=== PATIENT | female | born 1995 | race Caucasian/White ===

== ENCOUNTER 2017-10-18 05:59 | Day surgery (SDC) | payer BC ==
[2017-10-16 11:14] LABS: Urine Appearance CLOUDY; Urine Bilirubin NEGATIVE (NEG); Urine Blood 3+ (NEG); Urine Color YELLOW; Urine Glucose NEGATIVE (NEG); Urine Protein TRACE (NEG); Urine Urobilinogen 0.2 mg/dL (0.2-1.0); Urine pH 6.5 (5.0-7.0)
[2017-10-16 11:27] LABS: Urine Microscopic Reflex ORDER UMIC
[2017-10-16 11:31] LABS: Absolute Monocytes 0.4 K/uL (0.1-1.3); Absolute Neutrophil 2.6 K/uL (1.8-8.0); Basophils % 0.9 % (0-1.3); Eosinophils % 0.8 % (0-4.4); Lymphocytes % 38.8 % (15.3-44.8); MCH 30.1 pg (27.0-35.0); MCV 88.1 fL (80-100); MPV 8.7 fL (7.6-11.3); Monocytes % 8.6 % (3.3-12.3); RBC Red Blood Cell Count 4.54 M/uL (3.86-4.86)
[2017-10-16 11:38] LABS: Urine Bacteria <20 /HPF (<20); Urine RBC 20-50 /HPF (NONE SEEN)
[2017-10-16 11:39] LABS: Urine Culture Reflex Order REFLEXED
[2017-10-18] MEDS ORDERED: SCOPOLAMINE HYDROBROMIDE PATCH TD ONE (06:27)
[2017-10-18] MEDS ORDERED: Ringers Lactate 1,000 ML IV ONE ×2 (06:27→10:00)
[2017-10-18] MEDS ORDERED: PROPOFOL 200 MG/20 ML VIAL IV ONE (06:54)
[2017-10-18] MEDS ORDERED: ROCURONIUM 50 MG/5 ML VIAL IV ONE (06:54)
[2017-10-18] MEDS ORDERED: FENTANYL CITR 250 MCG/5 ML ONE ×2 (06:54→09:12)
[2017-10-18] MEDS ORDERED: MIDAZOLAM HCL 2 MG/2 ML INJ ONE (06:54)
[2017-10-18] MEDS ORDERED: LIDOCAINE 1% MPF 2 ML AMPULE ONE (06:55)
[2017-10-18] MEDS ORDERED: ONDANSETRON HCL 40 MG/20 ML VIAL ONE (06:55)
[2017-10-18] MEDS ORDERED: DEXAMETHASONE 10 MG/ML VIAL ONE (07:00)
[2017-10-18] MEDS: CEFAZOLIN/SWI 1gm 1 GM/10 ML SYR ONE ×2 (07:08→07:45)
[2017-10-18] MEDS: NA CHLORIDE 0.9% 1,000 ML ONE ×2 (07:09→07:45)
[2017-10-18] MEDS ORDERED: KETOROLAC 30 MG/ML INJ ONE (09:50)
[2017-10-18] MEDS: MEPERIDINE HCL 50 MG/ML AMP ONE ×4 (10:35→10:55)
[2017-10-18] MEDS: MORPHINE 4 MG/ML SYR ONE ×2 (11:00→11:08)
[2017-10-18] MEDS ORDERED: ONDANSETRON 4 MG/2 ML VIAL ONE (11:54)
[2017-10-18] MEDS ORDERED: HYDROCODONE/APAP 5/325 MG TAB ONE (13:12)
[2017-10-18 14:03] VITALS: BP 108/46; TEMP 97.3; O2SAT 99
== END 2017-10-18 13:55 | disposition home or self-care (01) ==
LOC: OR 05:59
PROVIDERS: ATTEND Obstetrics & Gynecology
PROC: 0UT74ZZ Resection of Bilateral Fallopian Tubes, Percutaneous Endoscopic Approach (ICD-10-PCS; 2017-10-18)
PROC: 0WQF0ZZ Repair Abdominal Wall, Open Approach (ICD-10-PCS; 2017-10-18)
PROC: 0UT94ZZ Resection of Uterus, Percutaneous Endoscopic Approach (ICD-10-PCS; principal; 2017-10-18 07:00)
DX: N92.1 Excessive and frequent menstruation with irregular cycle (principal); R10.2 Pelvic and perineal pain; N80.9 Endometriosis, unspecified; F32.9 Major depressive disorder, single episode, unspecified; N94.12 Deep dyspareunia; Z88.1 Allergy status to other antibiotic agents; Z88.8 Allergy status to other drugs, medicaments and biological substances; K42.9 Umbilical hernia without obstruction or gangrene; R87.610 Atypical squamous cells of undetermined significance on cytologic smear of cervix (ASC-US); N88.8 Other specified noninflammatory disorders of cervix uteri; N72 Inflammatory disease of cervix uteri
CPT/HCPCS: 36415; 81003; 81015; 81025; 85025; 86850; 86900; 86901; 87086; 87088; 88302; 88305; 88307; J0690; J1100; J2001; J2175; J2250; J2405; J7030

== ENCOUNTER 2018-10-24 06:29 | Day surgery (SDC) | payer BC ==
[2018-10-23 14:25] LABS: Absolute Lymphocytes (CBC) 2.7 K/uL (0.7-4.9); Hematocrit 39.1 % (36.0-45.0); Lymphocytes % 42.2 % (15.3-44.8); MPV 8.1 fL (7.6-11.3); RBC Red Blood Cell Count 4.47 M/uL (3.86-4.86)
[2018-10-23 14:47] LABS: BUN Blood Urea Nitrogen 10 mg/dL (7-18); Bicarbonate 27 mmol/L (21-32); Glucose Level 64 mg/dL (74-106); Potassium 3.7 mmol/L (3.5-5.1); Sodium Level 142 mmol/L (136-145)
[2018-10-23 14:55] LABS: Bilirubin Direct 0.2 mg/dL (0-0.2); Bilirubin Total 0.6 mg/dL (0.2-1.0); Protein, Total 7.9 g/dL (6.4-8.2)
[2018-10-24] MEDS ORDERED: CEFOXITIN/SWI 1gm 1 GM/10 ML SYR ONE (06:48)
[2018-10-24] MEDS ORDERED: Ringers Lactate 1,000 ML IV ONE ×2 (06:48→08:35)
[2018-10-24] MEDS ORDERED: SCOPOLAMINE HYDROBROMIDE PATCH TD ONE ×2 (06:55→07:01)
[2018-10-24] MEDS ORDERED: MIDAZOLAM HCL 2 MG/2 ML INJ ONE (07:00)
[2018-10-24] MEDS ORDERED: PROPOFOL 200 MG/20 ML VIAL IV ONE (07:00)
[2018-10-24] MEDS ORDERED: FENTANYL CITR 100 MCG/2 ML ONE (07:00)
[2018-10-24] MEDS ORDERED: LIDOCAINE 2% MPF 5 ML VIAL ONE (07:01)
[2018-10-24] MEDS ORDERED: ROCURONIUM 50 MG/5 ML VIAL IV ONE (07:01)
[2018-10-24] MEDS ORDERED: dexAMETHasone 10 MG/ML VIAL ONE (07:01)
[2018-10-24] MEDS ORDERED: ONDANSETRON 4 MG/2 ML VIAL ONE ×2 (07:02→11:32)
[2018-10-24] MEDS ORDERED: CEFOXITIN/SWI 1gm 1 GM/10 ML SYR IVP SCH (07:30)
[2018-10-24] MEDS ORDERED: LANO/MINERAL OIL/PETRO 3.5 GM ONE (07:53)
[2018-10-24] MEDS ORDERED: GLYCOPYRROLATE 0.2 MG/ML SYR ONE (08:28)
[2018-10-24] MEDS ORDERED: NEOSTIGMINE 1 MG/ML -10 ML VIAL ONE (08:29)
--- NOTE | 2018-10-24 08:44 | P.BOP ---
Preoperative diagnosis: Symptomatic cholelithiasis, RUQ abd pain Postoperative diagnosis: same Primary procedure: Laparoscopic cholecystectomy Utility Manager: RENA HAMMER (BOILER BLOWER) Estimated blood loss: <10cc Specimen: gb Findings: as above Anesthesia: General Complications: None Transferred to: Recovery Room Condition: Good
[2018-10-24] MEDS ORDERED: HYDROMORPHONE HCL 1 MG/ML INJ ONE (09:25)
[2018-10-24] MEDS: HYDROMORPHONE HCL 1 MG/ML INJ ONE ×4 (09:33→10:00)
[2018-10-24] MEDS ORDERED: CODEINE 30MG/APAP 300MG TAB ONE (10:35)
[2018-10-24 13:10] VITALS: BP 110/53; TEMP 97.6; O2SAT 100
--- NOTE | 2018-10-25 | DS ---
Date of Discharge: 10/24/2018 Diagnoses: Symptomatic cholelithiasis, acute cholecystitis, right upper quadrant abdominal pain. Procedure: Laparoscopic cholecystectomy. Disposition: Home. Activity: As tolerated. No heavy lifting. Followup: Follow up in my office in 1 week. Call for appointment at [phone]. Keep area dry for 48 hours, then may shower. Keep Steri-Strip intact. Medications: See orders. BEBE/YAHIR Voice ID: [id number] Report ID: [id number]
--- NOTE | 2018-10-25 | OP ---
Date of Procedure: 10/24/2018 Surgeon: Jovan Barth MD [employer] Superintendent: ZACH Malagon Preoperative Diagnoses: Symptomatic cholelithiasis, right upper quadrant abdominal pain. Postoperative Diagnoses: Symptomatic cholelithiasis, right upper quadrant abdominal pain. Procedure: Laparoscopic cholecystectomy. Estimated Blood Loss: Less than 10 mL. Specimen: Gallbladder. Finding: As above. Anesthesia: General plus local. Indications: This is a case of a 23-year-old patient with epigastric recurrent pain diagnosed with s ymptomatic cholelithiasis, right upper quadrant abdominal pain, recurrent, intractable. Patient unde rstands the benefits, alternatives, and risks of laparoscopic, possible open, cholecystectomy which i nclude, but not limited to infection, bleeding, damage to adjacent structures, anesthesia complicatio n, choledocholithiasis, bile leak, pancreatitis, AL, and even . She also understands this may n ot relieve any symptoms. She might need more than one surgical intervention. She understood, signed the consent. Description Of Procedure: Patient was brought to the operating room, placed in supine position. Ane sthesia was done without complication. Abdominal area was prepped and draped in a sterile fashion. Marcaine 0.5% was injected for local anesthetic, followed by sharp incision of the skin in the infrau mbilical region. Incision was carried down to fascia, which was opened under direct vision. Periton eum was encountered, opened under direct vision. Vicryl #1 placed inside the fascia. Xuan trocar was carefully introduced. No bleeding was obtained. I placed 3 more trocars, 5 mm each one of them, in the right upper quadrant under direct visualization. This allowed me to put a grasper in the fun dus of the gallbladder, another grasper in the infundibulum, and the gallbladder was retracted in the inferolateral fashion exposing the triangle of Calot obtaining critical view safety. The cystic jordana t and cystic artery were clearly isolated and freed circumferentially and the connection between thos e and the gallbladder were clearly identified. I proceeded to ligate those by using at least 3 clips proximal, 1 clip distally, ligation in the middle. Then, the cystic artery was ligated with 2 clips proximal, 1 clip distal, and ligation in the middle. Gallbladder was removed from the liver using B ovie cauterizer and removed from abdominal cavity using an EndoCatch through the umbilical incision. The area was inspected once again. No bile leak. No bleeding. Clips were intact. This was after irrigation and suction. At that moment, I proceeded to remove the trocars under direct vision, defla sonya the pneumoperitoneum, closed the fascia with #1 Vicryl, irrigated the subcutaneous tissue and estelita sed that with 3-0 chromic, the skin in a subcuticular fashion with 3-0 chromic, and a Steri-Strip on top. Sponge count and instrument count were correct. Patient tolerated the procedure well. Patient was sent to Recovery in stable condition. BEBE/YAHIR Voice ID: [id number] Report ID: [id number]
== END 2018-10-24 12:35 | disposition home or self-care (01) ==
LOC: OR 06:29
PROVIDERS: ATTEND Surgery
PROC: 0FT44ZZ Resection of Gallbladder, Percutaneous Endoscopic Approach (ICD-10-PCS; principal; 2018-10-24 07:30)
DX: K80.10 Calculus of gallbladder with chronic cholecystitis without obstruction (principal); Z88.3 Allergy status to other anti-infective agents; Z88.8 Allergy status to other drugs, medicaments and biological substances; Z80.42 Family history of malignant neoplasm of prostate; Z82.49 Family history of ischemic heart disease and other diseases of the circulatory system
CPT/HCPCS: 47562; 85025; 80048; 36415; 82150; 80076; 88304; 83690; J2704; J2710; J2250; J3010; J1100; J1170 ×3; J2405 ×2

== ENCOUNTER 2021-04-16 20:41 | Emergency (ER) | payer BC ==
[2021-04-17] MEDS ORDERED: HYDROCODONE/APAP 7.5/325 MG TAB ONE (00:09)
--- NOTE | 2021-04-17 00:30 | EDPHYS ---
Physician Documentation [facility] Name: Naima Pinto Age: 25 yrs Sex: Female : 1995 Arrival Date: 04/16/2021 Time: 20:45 Bed 15 Private MD: ED Physician Yonatan Deutsch HPI: 04/16 21:55 This 25 yrs old Female presents to ER via Ambulatory with complaints of Post Surgical kb Pain. 21:55 The patient presents with abdominal pain in the lower abdomen. The symptoms do not kb radiate. The patient has not experienced similar symptoms in the past. The patient has not recently seen a physician. 21:55 Onset: The symptoms/episode began/occurred last week. Associated signs and symptoms: kb none. The symptoms are described as constant. Modifying factors: The symptoms are alleviated by remaining still, the symptoms are aggravated by movement. Severity of pain: At its worst the pain was moderate in the emergency department the pain is unchanged. Pt reports pain beneath surgical incision. Pt is 2 weeks status post laparoscopic surgery to remove endometriosis tissue. States she has intermittent sharp pains with pulling/stretching pains at other times. States her kids recently had a stomach virus and she picked them up to comfort them, but was not supposed to be lifting so she is concerned she injured herself. . 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 - Social history:: Smoking status: Patient denies any tobacco usage or history of. ROS: 21:55 Constitutional: Negative for fever, chills, and weight loss. kb 21:55 Abdomen/GI: Positive for abdominal pain, Negative for nausea, vomiting, and diarrhea. 21:55 All other systems are negative. Exam: 21:53 Constitutional: This is a well developed, well nourished patient who is awake, alert, kb and in no acute distress. Head/Face: Normocephalic, atraumatic. ENT: Moist Mucous membranes Respiratory: Respirations even and unlabored. No increased work of breathing. Talking in full sentences Skin: Warm, dry with normal turgor. Normal color. MS/ Extremity: Pulses equal, no cyanosis. Neurovascular intact. Full, normal range of motion. Neuro: Awake and alert, GCS 15, oriented to person, place, time, and situation. Moves all extremities. Normal gait. Psych: Awake, alert, with orientation to person, place and time. Behavior, mood, and affect are within normal limits. 21:53 Abdomen/GI: Inspection: surgical incisions healing well to left pelvic area and umbilicus. Tenderness to palpation around surgical incision to left pelvic area, Bowel sounds: normal. Vital Signs: 20:52 BP 129 / 81; Pulse 76; Resp 16; Temp 98.8(TE); Pulse Ox 100% on R/A; Weight 74.84 kg; ab2 Height 5 ft. 5 in. (165.10 cm); Pain 4/10; 22:20 BP 115 / 75; Pulse 72; Resp 15; Pulse Ox 100% ; ll3 23:30 BP 120 / 57; Pulse 69; Resp 16; Pulse Ox 100% ; ll3 04/17 00:12 BP 103 / 58; Pulse 64; Resp 15; Pulse Ox 100% on R/A; ll3 04/16 20:52 Body Mass Index 27.46 (74.84 kg, 165.10 cm) ab2 MDM: 04/16 20:59 Patient medically screened. kb 21:53 Data reviewed: vital signs, nurses notes. Data interpreted: Pulse oximetry: on room air kb is 100 %. Interpretation: normal. 04/17 00:27 Counseling: I had a detailed discussion with the patient and/or guardian regarding: the kb historical points, exam findings, and any diagnostic results supporting the discharge/admit diagnosis, radiology results, the need for outpatient follow up, a family practitioner, to return to the emergency department if symptoms worsen or persist or if there are any questions or concerns that arise at home. 04/16 22:34 Order name: Abdomen EDMS Administered Medications: 00:10 Drug: [place] (HYDROcodone-acetaminophen) (7.5 mg-325 mg) 1 tabs Route: PO; ll3 00:47 Follow up: Response: No adverse reaction; Marked relief of symptoms ll3 Disposition: 02:17 Co-signature as Attending Physician, Yonatan Deutsch MD. [email or web address] Disposition Summary: 04/17/21 00:29 Discharge Ordered Location: Home kb Condition: Stable kb Diagnosis - Lower abdominal pain, unspecified kb Followup: kb - With: Emergency Department - When: As needed - Reason: Worsening of condition Followup: kb - With: Private Physician - When: 2 - 3 days - Reason: Recheck today's complaints, Continuance of care, Re-evaluation by your physician Discharge Instructions: - Discharge Summary Sheet kb - Abdominal Pain, Adult, [id number] kb Forms: - Medication Reconciliation Form kb - Thank You Letter kb - Antibiotic Education kb - Prescription Opioid Use kb Prescriptions: - Diclofenac Sodium 75 mg Oral tablet,delayed release (DR/EC) - take 1 tablet by ORAL route 2 times per day As needed; 30 tablet; Refills: 0, kb Product Selection Permitted Signatures: Dispatcher [employer] EDMS Karen Lindsay, HIDE SORTER-C HIDE SORTER-Yonatan Barba MD MD 7 Keven Ames RN RN ll3 Herber Thurston ab2 Corrections: (The following items were deleted from the chart) 04/16 20:56 20:55 Allergies: No Known Allergies; ab2 ab2 20:56 20:55 Allergies: Bactrim; ab2 ab2 20:56 20:55 Home Meds: sertraline 50 mg oral tab 1 tab once daily; ab2 ab2 20:56 20:55 PMHx: Endometriosis of vagina; ab2 ab2 20:56 20:55 PSHx: None; ab2 ab2 22:56 22:42 Abdomen Pelvis Wo Con+CT.RAD.BRZ ordered. EDMI EDMI
--- NOTE | 2021-04-17 00:30 | ER ---
Nurse's Notes [facility] Name: Naima Pinto Age: 25 yrs Sex: Female : 1995 Arrival Date: 04/16/2021 Time: 20:45 Bed 15 Private MD: Diagnosis: Lower abdominal pain, unspecified Presentation: 04/16 20:52 Chief complaint: Patient states: "I had surgery two weeks ago for my endometriosis. My ab2 bottom incision is causing me a lot of pain. Every time I move or stand up straight it feels like im ripping something internally.". Coronavirus screen: Vaccine status: Patient reports being unvaccinated. Client denies travel out of the [place] in the last 14 days. At this time, the client does not indicate any symptoms associated with coronavirus-19. Ebola Screen: Patient negative for fever greater than or equal to 101.5 degrees Fahrenheit, and additional compatible Ebola Virus Disease symptoms Patient denies exposure to infectious person. Patient denies travel to an Ebola-affected area in the 21 days before illness onset. No symptoms or risks identified at this time. Initial Sepsis Screen: Does the patient meet any 2 criteria? No. Patient's initial sepsis screen is negative. Does the patient have a suspected source of infection? No. Patient's initial sepsis screen is negative. Risk Assessment: Do you want to hurt yourself or someone else? Patient reports no desire to harm self or others. Onset of symptoms is unknown. 20:52 Method Of Arrival: Ambulatory ab2 20:52 Acuity: SONIDO 3 ab2 Triage Assessment: 20:56 General: Appears in no apparent distress. comfortable, Behavior is calm, cooperative, ab2 appropriate for age. Pain: Complains of pain in suprapubic area and left lower quadrant Pain currently is 4 out of 10 on a pain scale. 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 - Social history:: Smoking status: Patient denies any tobacco usage or history of. Screenin:17 Abuse screen: Denies threats or abuse. Nutritional screening: No deficits noted. ll3 Tuberculosis screening: No symptoms or risk factors identified. 04/17 00:48 Fall Risk None identified. ll3 Assessment: 04/16 21:17 General: Appears uncomfortable, Behavior is calm, cooperative. Pain: Complains of pain ll3 in left lower quadrant and suprapubic area Pain currently is 5 out of 10 on a pain scale. Pain began 2-3 days ago. Is continuous, Aggravated by repositioning. Neuro: Level of Consciousness is awake, alert, obeys commands, Oriented to person, place, time, situation. Cardiovascular: Patient's skin is warm and dry. Respiratory: Respiratory effort is even, unlabored, Respiratory pattern is regular, symmetrical. Derm: Wound noted left lower quadrant and suprapubic area Other: Post surgical incision, pt states incision started hurting after picking children up 3 days ago and has been getting worse since. Musculoskeletal: Circulation, motion, and sensation intact. 23:30 Reassessment: No changes from previously documented assessment. Patient and/or family ll3 updated on plan of care and expected duration. Pain level reassessed. Patient is alert, oriented x 3, equal unlabored respirations, skin warm/dry/pink. States pain of 4/10. 04/17 00:02 Reassessment: C/o LLQ pain at incision site 07/30, STEFANIA Parrish notified, ll3 medicated as ordered, tolerated well. Vital Signs: 04/16 20:52 BP 129 / 81; Pulse 76; Resp 16; Temp 98.8(TE); Pulse Ox 100% on R/A; Weight 74.84 kg; ab2 Height 5 ft. 5 in. (165.10 cm); Pain 4/10; 22:20 BP 115 / 75; Pulse 72; Resp 15; Pulse Ox 100% ; ll3 23:30 BP 120 / 57; Pulse 69; Resp 16; Pulse Ox 100% ; ll3 04/17 00:12 BP 103 / 58; Pulse 64; Resp 15; Pulse Ox 100% on R/A; ll3 04/16 20:52 Body Mass Index 27.46 (74.84 kg, 165.10 cm) ab2 ED Course: 04/16 20:45 Patient arrived in ED. ja2 20:52 Karen Lindsay FNP-C is [facility]. kb 20:52 Yonatan Deutsch MD is Attending Physician. kb 20:55 Triage completed. ab2 20:57 Arm band placed on left wrist. ab2 21:12 Keven Ames, RN is Primary Nurse. ll3 21:17 Patient has correct armband on for positive identification. Bed in low position. Call ll3 light in reach. Side rails up X 1. 22:59 Abdomen In Process Unspecified. EDMS 04/17 00:47 No provider procedures requiring assistance completed. Patient did not have IV access ll3 during this emergency room visit. Administered Medications: 00:10 Drug: [place] (HYDROcodone-acetaminophen) (7.5 mg-325 mg) 1 tabs Route: PO; ll3 00:47 Follow up: Response: No adverse reaction; Marked relief of symptoms ll3 Outcome: 00:29 Discharge ordered by MD. kb 00:47 Discharged to home ambulatory, with family. ll3 00:47 Condition: stable 00:47 Discharge instructions given to patient, family, Instructed on discharge instructions, follow up and referral plans. medication usage, Demonstrated understanding of instructions, follow-up care, medications, Prescriptions given X 1. 00:48 Patient left the ED. ll3 Signatures: Dispatcher [employer] EDMI Karen Lindsay FNP-C TIRE MOLDER-Ckb Sarah Coronel2 Keven Ames, RN RN ll3 Herber Thurston ab2 Corrections: (The following items were deleted from the chart) 04/16 20:56 20:55 Allergies: No Known Allergies; ab2 ab2 20:56 20:55 Allergies: Bactrim; ab2 ab2 :56 20:55 Home Meds: sertraline 50 mg oral tab 1 tab once daily; ab2 ab2 : 20:55 PMHx: Endometriosis of vagina; ab2 ab2 :56 20:55 PSHx: None; ab2 ab2
[2021-04-17 01:01] VITALS: O2SAT 100
[2021-04-17 01:03] VITALS: TEMP 98.8
[2021-04-17 01:04] VITALS: BP 103/58
--- NOTE | 2021-04-17 20:42 | RAD REPORT ---
EXAM DESCRIPTION: CLINICAL HISTORY: Postoperative pain. COMPARISON: CT abdomen and pelvis without contrast 03/08/2016. TECHNIQUE: Axial unenhanced CT imaging of the abdomen and pelvis performed. Reformatted coronal and sagittal waqar ges reviewed. A dose reduction technique was utilized with automated exposure control according to patient size. FINDINGS: Clear lung bases. Heart is normal in size. Normal liver. Gallbladder has been resected. Unremarkable spleen. Normal pancreas, adrenal glands and kidneys. Aorta and inferior vena cava are normal in caliber. Normal stomach and small bowel loops. Appendix has been resected. Normal colon. No ascites. No mesent fatuma adenopathy. Bladder appears normal. Uterus is surgically absent. There is trace fluid within the pelvis. Normal o varies. Unremarkable bony structures. Normal hips. Subcutaneous induration in the anterior left pelvi c subcutaneous tissues may be a surgical incision site. IMPRESSION: 1. No acute finding within the abdomen. 2. Trace pelvic free fluid. 3. Status post hysterectomy and appendectomy. Electronically signed by: Mona Steward DO 04/16/2021 11:56 PM MEDICINE AND HEALTH SERVICE MANAGER Due to temporary technical issues with the PACS/Fluency reporting system, reports are being signed by the in house radiologists without review as a courtesy to insure prompt reporting. The interpreting radiologist is fully responsible for the content of the report.
== END 2021-04-17 00:48 | disposition home or self-care (01) ==
LOC: ER 20:41
DX: R10.30 Lower abdominal pain, unspecified (principal); Z98.890 Other specified postprocedural states
CPT/HCPCS: 74176; 99283

== ENCOUNTER 2021-04-27 08:46 | Emergency (ER) | payer BC ==
[2021-04-27 09:21] LABS: Urine Blood 3+ (Negative); Urine Glucose Negative (Negative); Urine Protein 1+ (Negative); Urine Specific Gravity 1.025 (1.005-1.030)
[2021-04-27 10:27] LABS: SARS-COV-2 RT PCR NEGATIVE (NEGATIVE)
--- NOTE | 2021-04-27 10:30 | EDPHYS ---
Physician Documentation [facility] Name: Naima Pinto Age: 25 yrs Sex: Female : 1995 Arrival Date: 04/27/2021 Time: 08:50 Bed 27 Private MD: ED Physician Jh Cortes HPI: 04/27 09:05 This 25 yrs old Female presents to ER via Ambulatory with complaints of Fever, Cough, kb Congestion, Back Pain. 09:05 The patient or guardian reports cough, that is intermittent, described as moderate, flu kb symptoms, low-grade fever, myalgias. Associated signs and symptoms: Pertinent positives: fever, rhinorrhea, sore throat. The patient has not experienced similar symptoms in the past. The patient has not recently seen a physician. 09:09 Onset: The symptoms/episode began/occurred 3 day(s) ago. Severity of symptoms: At their kb worst the symptoms were moderate, in the emergency department the symptoms are unchanged. Modifying factors: The symptoms are alleviated by nothing, the symptoms are aggravated by nothing. Pt reports cough, congestion, fever, chills, headache and sore throat for 3 days. Son had flu last week. 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 - Social history:: Smoking status: Patient denies any tobacco usage or history of. ROS: 09:04 Abdomen/GI: Negative for abdominal pain, nausea, vomiting, diarrhea, and constipation. kb 09:04 Constitutional: Positive for body aches, chills, fatigue, fever, malaise. 09:04 ENT: Positive for rhinorrhea, sinus congestion, sore throat. 09:04 Respiratory: Positive for cough, Negative for dyspnea on exertion, hemoptysis, orthopnea, pleurisy, shortness of breath, sputum production, wheezing. 09:04 Neuro: Positive for headache. 09:04 All other systems are negative. Exam: 09:05 Constitutional: This is a well developed, well nourished patient who is awake, alert, kb and in no acute distress. Head/Face: Normocephalic, atraumatic. ENT: Moist Mucous membranes Cardiovascular: Regular rate and rhythm with a normal S1 and S2. No gallops, murmurs, or rubs. No pulse deficits. Respiratory: Respirations even and unlabored. No increased work of breathing. Talking in full sentences Abdomen/GI: Soft, non-tender. No distention Skin: Warm, dry with normal turgor. Normal color. MS/ Extremity: Pulses equal, no cyanosis. Neurovascular intact. Full, normal range of motion. Neuro: Awake and alert, GCS 15, oriented to person, place, time, and situation. Moves all extremities. Normal gait. Psych: Awake, alert, with orientation to person, place and time. Behavior, mood, and affect are within normal limits. Vital Signs: 08:55 BP 115 / 76; Pulse 98; Resp 18; Temp 97.7; Pulse Ox 100% on R/A; Weight 73.48 kg; ph Height 5 ft. 5 in. (165.10 cm); 09:21 BP 113 / 69; Pulse 94; Resp 15; Pulse Ox 99% ; Pain 4/10; eo2 08:55 Body Mass Index 26.96 (73.48 kg, 165.10 cm) ph MDM: 08:56 Patient medically screened. kb 09:05 Data reviewed: vital signs, nurses notes. Data interpreted: Pulse oximetry: on room air kb is 100 %. Interpretation: normal. 10:29 Counseling: I had a detailed discussion with the patient and/or guardian regarding: the kb historical points, exam findings, and any diagnostic results supporting the discharge/admit diagnosis, lab results, the need for outpatient follow up, an OB/Gyne specialist, to return to the emergency department if symptoms worsen or persist or if there are any questions or concerns that arise at home. 04/27 08:52 Order name: COVID-19/FLU A+B (Document "Date of Onset" if Symptomatic); Complete Time: kb 10:29 04/27 09:04 Order name: Strep; Complete Time: 09:51 kb 04/27 08:52 Order name: Urine Dipstick-Ancillary (obtain specimen); Complete Time: 09:21 kb 04/27 09:21 Order name: Urine Dipstick-Ancillary; Complete Time: 09:23 EDDC 04/27 09:47 Order name: Throat Culture EDMS Administered Medications: No medications were administered Disposition: 17:04 Co-signature as Attending Physician, Jh Cortes MD I agree with the assessment and rn plan of care. Attestation: The patient's history, exam findings, diagnostics, and a summary of any interventions or procedures was reviewed in detail with Karen DE LA PAZ. Disposition Summary: 04/27/21 10:29 Discharge Ordered Location: Home kb Condition: Stable kb Diagnosis - Influenza due to identified novel influenza A virus kb Followup: kb - With: Emergency Department - When: As needed - Reason: Worsening of condition Followup: kb - With: Private Physician - When: 2 - 3 days - Reason: Recheck today's complaints, Continuance of care, Re-evaluation by your physician Discharge Instructions: - Discharge Summary Sheet kb - Influenza, Adult, [id number] kb Forms: - Medication Reconciliation Form kb - Thank You Letter kb - Antibiotic Education kb - Prescription Opioid Use kb Signatures: Dispatcher [employer] EDDC Karen Lindsay, ANA CRISTINA ONLINE ADVERTISING ANALYST-Ckb Jh Cortes MD MD rn Hall, Patricia, RN RN ph Ching Harvey RN RN eo2 Corrections: (The following items were deleted from the chart) 09:00 08:52 Urine Test ordered. kb kb
--- NOTE | 2021-04-27 10:30 | ER ---
Nurse's Notes [facility] Name: Naima Pinto Age: 25 yrs Sex: Female : 1995 Arrival Date: 04/27/2021 Time: 08:50 Bed 27 Private MD: Diagnosis: Influenza due to identified novel influenza A virus Presentation: 04/27 08:55 Chief complaint: Patient states: Fever, cough, congestion, body aches, sore throat x 3 ph days, denies N/V/D, TMAX 102, son recently dx w/ flu. Coronavirus screen: Vaccine status: Patient reports being unvaccinated. Coronavirus screen: Vaccine status: Patient reports having had a previously documented Covid positive illness. Ebola Screen: No symptoms or risks identified at this time. Resp Distress? No respiratory distress is noted at this time. Initial Sepsis Screen: Does the patient meet any 2 criteria? No. Patient's initial sepsis screen is negative. Does the patient have a suspected source of infection? No. Patient's initial sepsis screen is negative. Risk Assessment: Do you want to hurt yourself or someone else? Patient reports no desire to harm self or others. Onset of symptoms was April 27, 2021. 08:55 Method Of Arrival: Ambulatory ph 08:55 Acuity: SONIDO 4 ph Triage Assessment: 08:57 General: Appears in no apparent distress. Behavior is calm, cooperative, Reports chills ph for fever for 2-3 days. Pain:. Respiratory: Reports cough that is productive, pain with cough Denies shortness of breath. 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 - Social history:: Smoking status: Patient denies any tobacco usage or history of. Screenin:21 Abuse screen: Denies threats or abuse. Denies injuries from another. Nutritional eo2 screening: No deficits noted. Tuberculosis screening: No symptoms or risk factors identified. Fall Risk None identified. Assessment: 09:21 General: Appears in no apparent distress. comfortable, Behavior is calm, cooperative. eo2 Pain: Complains of pain in left upper back pain. Neuro: Level of Consciousness is awake, alert, obeys commands, Oriented to person, place, time, situation, Reports headache. Cardiovascular: Denies chest pain, Heart tones S1 S2 Capillary refill < 3 seconds. Respiratory: Reports cough that is congestion, fever x 3 days, son is flu + Airway is patent Trachea midline Respiratory effort is even, unlabored, Respiratory pattern is regular, symmetrical, Breath sounds are clear bilaterally. GI: No deficits noted. Patient currently denies diarrhea, nausea, vomiting. : No deficits noted. No signs and/or symptoms were reported regarding the genitourinary system. 10:47 Reassessment: PT D/C HOME AMBULATORY, DX WITH INFLUENZA. bp Vital Signs: 08:55 BP 115 / 76; Pulse 98; Resp 18; Temp 97.7; Pulse Ox 100% on R/A; Weight 73.48 kg; ph Height 5 ft. 5 in. (165.10 cm); 09:21 BP 113 / 69; Pulse 94; Resp 15; Pulse Ox 99% ; Pain 4/10; eo2 08:55 Body Mass Index 26.96 (73.48 kg, 165.10 cm) ph ED Course: 08:50 Patient arrived in ED. mr 08:51 Karen Lindsay FNP-C is [facility]. kb 08:51 Jh Cortes MD is Attending Physician. kb 08:56 Triage completed. ph 08:57 Arm band placed on Patient placed in an exam room. ph 08:58 Ching Harvey, RENEE is Primary Nurse. eo2 09:21 Patient has correct armband on for positive identification. eo2 09:21 Strep Sent. eo2 09:21 COVID-19/FLU A+B (Document "Date of Onset" if Symptomatic) Sent. eo2 09:21 No provider procedures requiring assistance completed. Patient did not have IV access eo2 during this emergency room visit. Administered Medications: No medications were administered Outcome: 10:29 Discharge ordered by . kb 10:47 Discharged to home ambulatory. bp 10:47 Condition: stable 10:47 Discharge instructions given to patient, Instructed on discharge instructions, follow up and referral plans. Demonstrated understanding of instructions, follow-up care. 10:48 Patient left the ED. bp Signatures: Karen Lindsay FNP-C FNP-Ckb Myriam Márquez mr Emily Irving, RN RN ph Héctor Morejon, RN RN bp Ching Harvey RN RN eo2
[2021-04-27 11:00] VITALS: BP 113/69; O2SAT 99
[2021-04-27 11:01] VITALS: TEMP 97.7
== END 2021-04-27 10:48 | disposition home or self-care (01) ==
LOC: ER 08:46
DX: J10.1 Influenza due to other identified influenza virus with other respiratory manifestations (principal); Z20.822 Contact with and (suspected) exposure to COVID-19; Z88.1 Allergy status to other antibiotic agents
CPT/HCPCS: 87070; 87081; 81003; 0240U; 99283